=== PATIENT | male | born 1950 | race Caucasian/White ===

== ENCOUNTER 2017-12-08 04:34 | Observation (INO) | payer OTHER ==
--- NOTE | 2017-12-08 04:49 | EDPHY ---
H & P Stated Complaint: swelling to l mouth sweaty nausea Time Seen by Provider: 12/08/17 04:49 HPI/ROS: HPI CHIEF COMPLAINT: Left lower lip swelling. Additionally shortness of breath. HISTORY OF PRESENT ILLNESS: Patient is a 67-year-old male, he has a history of MS, hypertension, hyperlipidemia remote history of PE not on any anticoagulation history of CHF, he presents emergency room with multiple complaints but is main complaint is shortness of breath. He states over the past few days he has had progressively worsening shortness of breath. He states the bilateral lower extremity swelling is normal for him. He states he is unsure of his weight is up. He denies any chest pain. He does report dyspnea on exertion and increasing shortness of breath over the past week. Additionally reports some left lower lip swelling and pain. Past Medical History: MS, CHF, hypertension, hyperlipidemia, remote history of PE, wears 2 L at nasal cannula at night Past Surgical History: No recent surgery Social History: Lives locally, at bedside. Family History: Noncontributory ROS REVIEW OF SYSTEMS: A comprehensive 10 point review of systems is otherwise negative aside from elements mentioned in the history of present illness. Exam Constitutional nontoxic appearing however diaphoretic, mild labored breathing triage nursing summary reviewed, vital signs reviewed, awake/alert. Eyes normal conjunctivae and sclera, EOMI, PERRLA. HENT oropharynx along the left lower gumline towards the front about there is a gumline abscess, moist mucus membranes, no epistaxis, neck supple/ no meningismus, no raccoon eyes. Respiratory mild labored breathing but no wheezing. Cardiovascular rate normal, regular rhythm, no murmur, no edema, distal pulses normal. Gastrointestinal soft, non-tender, no rebound, no guarding, normal bowel sounds, no distension, no pulsatile mass. Genitourinary no CVA tenderness. Musculoskeletal bilateral extremity 3+ pitting edema. Equal. no midline vertebral tenderness, full range of motion, no calf swelling, no tenderness of extremities, no meningismus, good pulses, neurovascularly intact. Skin diaphoretic upon arrival. Neurologic awake, alert and oriented x 3, AAOx3, moves all 4 extremities equally, motor intact, sensory intact, CN II-XII intact, normal cerebellar, normal vision, normal speech. Psychiatric normal mood/affect. Heme/Lymph/Immune no lymphadenopathy. Differential Diagnosis: Includes but is not limited to in a particular order gumline abscess, decompensated heart failure acute CA, PE, pneumonia, volume overload Medical Decision Making: Plan for this patient evaluation for shortness of breath. Will obtain EKG, troponin, BNP, electrolytes, chest x-ray, breathing treatment, additionally will have the I and D his gumline abscess. Re-evaluation: EKG interpretation by me on record in [employer] system. Impression time of EKG 4:56 a.m., this is sinus rhythm rate of [address] elevation. No significant ST depression. Incomplete bundle branch block some motion artifact specially seen in V1 V2 V3. ED x-ray chest one view; poor inspiratory effort. Pulmonary edema present. Cardiomegaly present. PROCEDURE: GUM NIKOLAI ABSCESS I+D. Patient was verbally consented for I and D of the left lower gumline abscess. The patient's oropharynx was evaluate he does have multiple dental caries and somewhat poor dentition. Along the left side he has a gumline abscess and fullness with palpation. There is no evidence of Gold's. Lidocaine with epinephrine was used for local anesthesia 5 cc were used injected directly into the abscess. An 11 blade scalpel was used to make a stab incision approximately 2 cm in length and a good amount of pus was removed approximately 5-7 cc of pus. Patient tolerated this procedure very well. Reviewed milk out significant amount of drainage pus. Patient be placed on Augmentin here in the emergency room. CT angiogram of the chest shows a left upper lobe pulmonary embolism. Additionally elevated right hemidiaphragm with atelectasis. Final diagnosis will be left-sided lower gumline abscess. Additionally patient has a small left upper lobe pulmonary embolism Additionally patient has right lower lobe atelectasis with elevated hemidiaphragm. Recommend patient gets admitted due to his age, morbid obesity, new pulmonary embolism, gumline abscess additionally when the patient got here he was diaphoretic, and had labored breathing. Spoke with the hospitalist service agrees to admit. Dr. French. Source: Patient - Personal History Current Tetanus/Diphtheria Vaccine: Yes Current Tetanus Diphtheria and Acellular Pertussis (TDAP): Yes - Medical/Surgical History Hx Asthma: No Hx Chronic Respiratory Disease: No Hx Diabetes: No Hx Cardiac Disease: No Hx Renal Disease: No Hx Cirrhosis: No Hx Alcoholism: No Hx HIV/AIDS: No Hx Splenectomy or Spleen Trauma: No Other PMH: ms. trigeminal neuralgia - Social History Smoking Status: Never smoked Constitutional: Initial Vital Signs Temperature (C) 36.5 C 12/08/17 04:41 Heart Rate 70 12/08/17 04:41 Respiratory Rate 18 12/08/17 04:41 Blood Pressure 143/96 H 12/08/17 04:41 O2 Sat (%) 91 L 12/08/17 04:41 O2 Delivery Mode Nasal Cannula O2 (L/minute) 2 Allergies/Adverse Reactions: No Known Allergies Allergy (Verified 08/11/12 10:46) Home Medications: Medication Instructions Recorded Acetaminophen [Tylenol 325mg (*)] 325 - 650 mg PO Q6 PRN 12/08/17 Allopurinol [Allopurinol 300 MG 150 mg PO HS 12/08/17 (RX)] Allopurinol [Allopurinol 300 MG 300 mg PO DAILY 12/08/17 (RX)] Aspirin [Aspirin 81mg (*)] 81 mg PO DAILY 12/08/17 Bupropion HCl [Wellbutrin Xl] 300 mg PO DAILY 12/08/17 Fluticasone Nasal [Flonase Nasal 1 sprays NASAL DAILY 12/08/17 [place] (RX)] Ibuprofen [Motrin (*)] 200 - 600 mg PO DAILY PRN 12/08/17 Loratadine [Claritin 10 mg] 10 mg PO DAILY 12/08/17 Propranolol Sr [Inderal LA 80mg 80 mg PO DAILY 12/08/17 (*)] Zolpidem Tartrate [Ambien 5MG (*)] 10 mg PO HS 12/08/17 carBAMazepine ER [Carbatrol (*)] 200 mg PO BID 12/08/17 Medical Decision Making - Data Points Laboratory Results: Laboratory Results 12/08/17 05:15 12/08/17 05:15 Medications Given: Allopurinol (Allopurinol) 150 mg PO HS [facility] Stop: 06/06/18 20:59 Last Admin: 12/09/17 21:24 Dose: 150 mg Allopurinol (Allopurinol) 300 mg PO DAILY [facility] Stop: 06/07/18 08:59 Last Admin: 12/09/17 08:53 Dose: 300 mg Apixaban (Eliquis) 10 mg PO BID [facility] Stop: 06/06/18 20:59 Last Admin: 12/09/17 21:24 Dose: 10 mg Aspirin (Aspirin) 81 mg PO DAILY [facility] Stop: 06/07/18 08:59 Last Admin: 12/09/17 08:54 Dose: 81 mg Bupropion HCl (Wellbutrin Xl) 300 mg PO DAILY [facility] Stop: 06/07/18 08:59 Last Admin: 12/09/17 08:54 Dose: 300 mg Carbamazepine (Carbatrol) 200 mg PO BID [facility] Stop: 06/06/18 20:59 Last Admin: 12/09/17 21:23 Dose: 200 mg Cetirizine HCl (Zyrtec) 10 mg PO DAILY [facility] Stop: 06/07/18 08:59 Last Admin: 12/09/17 08:54 Dose: 10 mg Cefazolin Sodium/Dextrose (Ancef 2 Gm) 100 mls @ 200 mls/hr IV Q8HRS [facility] PRN Reason: Protocol Stop: 01/07/18 21:59 Last Admin: 12/09/17 21:24 Dose: 100 mls Ondansetron HCl (Zofran) 4 mg IVP Q4HRS PRN PRN Reason: Nausea/Vomiting, Can't Take PO Stop: 06/06/18 06:48 Last Admin: 12/09/17 08:52 Dose: 4 mg Propranolol HCl (Inderal La) 80 mg PO DAILY [facility] Stop: 06/07/18 08:59 Last Admin: 12/09/17 08:53 Dose: 80 mg Zolpidem Tartrate (Ambien) 10 mg PO HS [facility] Stop: 06/06/18 20:59 Last Admin: 12/09/17 21:24 Dose: 10 mg Discontinued Medications Amoxicillin/Clavulanate Potassium (Augmentin 875mg) 875 mg PO EDNOW ONE PRN Reason: Protocol Stop: 12/08/17 05:32 Last Admin: 12/08/17 05:36 Dose: 875 mg Enoxaparin Sodium (Lovenox) 130 mg SC EDNOW ONE Stop: 12/08/17 06:41 Last Admin: 12/08/17 06:57 Dose: 130 mg Furosemide (Lasix Injection) 40 mg IVP ONCE ONE Stop: 12/08/17 15:20 Last Admin: 12/08/17 15:46 Dose: 40 mg Point of Care Test Results: Chemistry 12/08/17 05:21 POC Troponin I 0.01 ng/mL ng/mL (0.00-0.08) Departure - Departure Disposition: [facility] Inpatient Acute Clinical Impression: Gum abscess Pulmonary embolism Qualifiers: Pulmonary embolism type: other Chronicity: acute Acute cor pulmonale presence: without acute cor pulmonale Qualified Code(s): I26.99 - Other pulmonary embolism without acute cor pulmonale Dyspnea Qualifiers: Dyspnea type: dyspnea on exertion Qualified Code(s): R06.09 - Other forms of dyspnea Condition: Fair
--- NOTE | 2017-12-08 05:05 | CPEKG ---
Heart Rate: 66 RR Interval: 909 P-R Interval: 185 QRSD Interval: 124 QT Interval: 408 QTC Interval: 428 P Harvey: 56 QRS Harvey: -39 T Wave Harvey: 24 EKG Severity - ABNORMAL ECG - EKG Impression: SINUS RHYTHM EKG Impression: NONSPECIFIC IVCD WITH LAD EKG Impression: PROBABLE INFERIOR INFARCT, OLD Electronically Signed By: Huang Lewis 09-Dec-2017 06:54:02
[2017-12-08 05:24] LABS: PLATELET COUNT 158 10^3/uL (150-400)
[2017-12-08] MEDS ORDERED: AMOXICILLIN/CLAVULANATE POT 875/125 MG TAB PO ONE (05:31)
[2017-12-08 05:33] LABS: INR 1.12 (0.83-1.16); PROTIME(PATIENT) 14.6 SEC (12.0-15.0)
[2017-12-08] MEDS ORDERED: IOPAMIDOL (ISOVUE 370) 100 ML BTL IV ONE (05:48)
[2017-12-08] MEDS ORDERED: ENOXAPARIN 150 MG/ML SYR SC ONE (06:40)
[2017-12-08] MEDS ORDERED: ONDANSETRON DISINTEGRATING 4 MG TAB PO PRN (06:49)
[2017-12-08] MEDS ORDERED: ACETAMINOPHEN 325 MG TAB PO PRN (06:49)
--- NOTE | 2017-12-08 07:12 | PDGENHP ---
History and Physical - Chief Complaint SOB, mouth pain - History of Present Illness 67 yo morbidly obese M w/ MS and HTN presents with SOB, diaphoresis, and mouth pain. Patient began to feel poorly last night when he noted some mouth swelling , which he though might be an allergic reaction. In the ED he was found to have an oral abscess, which was drained. His symptoms improved significantly after this. Due to shortness of breath, a D-dimer was checked, which was elevated. A CTPE was ordered, this showed small GLENNA PE. He has distant hx of DVT/PE but is no longer on AC. He currently denies symptoms and is has O2 sats in the mid 90' s on 2 L O2. History Information - Allergies/Home Medication List Allergies/Adverse Reactions: No Known Allergies Allergy (Verified 08/11/12 10:46) Home Medications: ALLOPURINOL 10/06/09 [Last Taken Unknown] Ambien 10/06/09 [Last Taken Unknown] Aspirin 81mg 10/06/09 [Last Taken Unknown] CLONAZEPAM 10/06/09 [Last Taken Unknown] Claritin 10/06/09 [Last Taken Unknown] Flonase 10/06/09 [Last Taken Unknown] Lisinopril 10/06/09 [Last Taken Unknown] Neurontin 10/06/09 [Last Taken Unknown] PROPRANOLOL HCL 10/06/09 [Last Taken Unknown] Wellbutrin 10/06/09 [Last Taken Unknown] Zocor 10/06/09 [Last Taken Unknown] Zoloft 10/06/09 [Last Taken Unknown] I have personally reviewed and updated: family history, medical history - Past Medical History DVT, hypertension Additional medical history: MS - Surgical History Reports: spinal surgery - Family History Additional family history: ALS, Gonzalez's Palsy. Denies family Hx of MS - Social History Smoking Status: Never smoked Review of Systems Review of Systems: ROS: 10pt was reviewed & negative except for what was stated in HPI & below Physical Exam Physical Exam: Temp Pulse Resp BP Pulse Ox 36.5 C 69 24 H 148/92 H 95 12/08/17 04:41 12/08/17 05:38 12/08/17 05:38 12/08/17 05:38 12/08/17 05:38 Constitutional: no apparent distress, obese Eyes: PERRL, EOMI Ears, Nose, Mouth, Throat: moist mucous membranes, other (L lower drained oral abscess) Cardiovascular: regular rate and rhythym, no murmur, rub, or gallop Respiratory: no respiratory distress, no rales or rhonchi Skin: warm, normal color Musculoskeletal: full muscle strength, no muscle tenderness Neurologic: AAOx3, CN II-XII Intact Psychiatric: interacting appropriately, not anxious Lab Data & Imaging Review 12/08/17 05:15 12/08/17 05:15 WBC 9.71 10^3/uL (3.80-9.50) H 12/08/17 05:15 RBC 5.16 10^6/uL (4.40-6.38) 12/08/17 05:15 Hgb 16.6 g/dL (13.7-17.5) 12/08/17 05:15 Hct 49.2 % (40.0-51.0) 12/08/17 05:15 MCV 95.3 fL (81.5-99.8) 12/08/17 05:15 MCH 32.2 pg (27.9-34.1) 12/08/17 05:15 MCHC 33.7 g/dL (32.4-36.7) 12/08/17 05:15 RDW 12.7 % (11.5-15.2) 12/08/17 05:15 Plt Count 158 10^3/uL (150-400) 12/08/17 05:15 MPV 10.5 fL (8.7-11.7) 12/08/17 05:15 Neut % (Auto) 80.6 % (39.3-74.2) H 12/08/17 05:15 Lymph % (Auto) 8.5 % (15.0-45.0) L 12/08/17 05:15 [place] % (Auto) 7.0 % (4.5-13.0) 12/08/17 05:15 Eos % (Auto) 2.7 % (0.6-7.6) 12/08/17 05:15 Baso % (Auto) 0.8 % (0.3-1.7) 12/08/17 05:15 Nucleat RBC Rel Count 0.0 % (0.0-0.2) 12/08/17 05:15 Absolute Neuts (auto) 7.82 10^3/uL (1.70-6.50) H 12/08/17 05:15 Absolute Lymphs (auto) 0.83 10^3/uL (1.00-3.00) L 12/08/17 05:15 Absolute Monos (auto) 0.68 10^3/uL (0.30-0.80) 12/08/17 05:15 Absolute Eos (auto) 0.26 10^3/uL (0.03-0.40) 12/08/17 05:15 Absolute Basos (auto) 0.08 10^3/uL (0.02-0.10) 12/08/17 05:15 Absolute Nucleated RBC 0.00 10^3/uL (0-0.01) 12/08/17 05:15 Immature Gran % 0.4 % (0.0-1.1) 12/08/17 05:15 Immature Gran # 0.04 10^3/uL (0.00-0.10) 12/08/17 05:15 PT 14.6 SEC (12.0-15.0) 12/08/17 05:15 INR 1.12 (0.83-1.16) 12/08/17 05:15 APTT 27.0 SEC (23.0-38.0) 12/08/17 05:15 D-Dimer 4.61 ug/mLFEU (0.00-0.50) H 12/08/17 05:15 Sodium 140 mEq/L (135-145) 12/08/17 05:15 Potassium 5.6 mEq/L (3.3-5.0) H 12/08/17 05:15 Chloride 99 mEq/L (97-110) 12/08/17 05:15 Carbon Dioxide 28 mEq/l (22-31) 12/08/17 05:15 Anion Gap 13 mEq/L (8-16) 12/08/17 05:15 BUN 17 mg/dL (7-23) 12/08/17 05:15 Creatinine 1.2 mg/dL (0.7-1.3) 12/08/17 05:15 Estimated GFR > 60 12/08/17 05:15 Glucose 174 mg/dL (70-100) H 12/08/17 05:15 Calcium 9.4 mg/dL (8.5-10.4) 12/08/17 05:15 Magnesium 2.0 mg/dL (1.6-2.3) 12/08/17 05:15 Total Bilirubin 1.1 mg/dL (0.1-1.4) 12/08/17 05:15 Conjugated Bilirubin 0.7 mg/dL (0.0-0.5) H 12/08/17 05:15 Unconjugated Bilirubin 0.4 mg/dL (0.0-1.1) 12/08/17 05:15 AST 30 IU/L (17-59) 12/08/17 05:15 ALT 31 IU/L (21-72) 12/08/17 05:15 Alkaline Phosphatase 78 IU/L (38-126) 12/08/17 05:15 POC Troponin I 0.01 ng/mL (0.00-0.08) 12/08/17 05:21 NT-Pro-B Natriuret Pep 330 pg/mL (0-125) H 12/08/17 05:15 Total Protein 6.8 g/dL (6.3-8.2) 12/08/17 05:15 Albumin 4.1 g/dL (3.5-5.0) 12/08/17 05:15 Specimen Hemolysis 133 12/08/17 05:15 Imaging Review: CTpe Prelim: small pe glenna mild cardiomegaly, left pericardial fat pad ? mild prom pulm vessels vs poor inspiration elevation right diap and atx non obst right nephrolith Visualized and Interpreted EKG results: Yes EKG Interpretation: Positive for: normal sinsus rhythm Assessment & Plan Assessment: 67 yo obese M w/ MS p/w oral abscess and small PE. Plan: 1. Pulmonary embolism - Small GLENNA PE found on CTPE after presenting w/ SOB. Unclear how much this was contributing to symptoms as SOB resolved after draining of oral abscess. He has distant hx of prior DVT/PE but is no longer on AC. Troponin negative, BNP 300s, ECG non-ischemic. Currently saturating 95% on baseline 2 L/min O2. - Admit for observation - Monitor on telemetry - Lovenox 1 mg/kg q12h - Discussed case w/ ED physician, reviewed previous records 2. Oral abscess - Drained in ED, will continue Augmentin BID. 3. MS - No e/o acute flare, continue home medications. 4. HTN - Continue home medications Diet - Regular Code - Full Ppx - Therapeutic LMWH Dispo - Admit under observation status
[2017-12-08] MEDS ORDERED: ONDANSETRON 4 MG/2 ML VIAL ONE (08:08)
--- NOTE | 2017-12-08 11:59 | ASMTCMCOM ---
CM Note CM Note Notes: Spoke w/RN, states pt came in for oral abscess. He lives independently with , has MS, and uses O2 at night. RN anticipates that pt will dc home with when medically stable. CM available for any changes. DC Plan: Independent Date Signed: 12/08/2017 11:58 AM Electronically Signed By:Bernie Linda RN
[2017-12-08] MEDS ORDERED: FUROSEMIDE 40 MG/4 ML VIAL IVP ONE (15:19)
--- NOTE | 2017-12-08 18:09 | HOSPPROG ---
Hospitalist Progress Note Assessment/Plan: Patient was seen and examined today. Briefly, patient was admitted with complaints of shortness of breath. He was also found to have an oral abscess which was incised and drained in the emergency room. Patient stated the afternoon he started noticing the fullness of his lower jaw increasing. I evaluated him and was able to express some purulence from the area I did obtain a swab for culture and sensitivities. Considering the increased I did adjust his antibiotics IV antibiotics. I also did give a dose of IV Lasix in light of edema noted on exam this may also help his elevated potassium level also seen this morning. Repeat labs ordered for the morning we also discussion on anticoagulation the patient stated that he would prefer not to go on Coumadin therapy as he was on the past. I adjusted his anticoagulation to Eliquis. I think we can probably get this covered for him for at least 1 month. In any can discuss with pharmacy his primary care provider which anticoagulation would prefer to use ongoing taking cost issues into consideration. Objective: Vital Signs Temp Pulse Resp BP Pulse Ox 36.9 C 68 16 142/76 H 94 12/08/17 15:08 12/08/17 15:08 12/08/17 15:08 12/08/17 15:08 12/08/17 15:08 Microbiology 12/08/17 15:24 Gram Stain - Final Mouth - Eswab PT 14.6 SEC (12.0-15.0) 12/08/17 05:15 INR 1.12 (0.83-1.16) 12/08/17 05:15 ICD10 Worksheet Patient Problems: Problems Problem Status Onset Dyspnea Acute Gum abscess Acute Pulmonary embolism Acute
[2017-12-08] MEDS ORDERED: ENOXAPARIN 150 MG/ML SYR SC SCH (21:00)
[2017-12-08] MEDS: ALLOPURINOL 300 MG TAB PO SCH (21:27)
[2017-12-08] MEDS: APIXABAN 5 MG TAB PO SCH (21:28)
[2017-12-08] MEDS: carBAMazepine ER 200 MG CAP PO SCH (21:28)
[2017-12-08] MEDS: ZOLPIDEM TARTRATE 5 MG TAB PO SCH (21:29)
[2017-12-08] MEDS: ceFAZolin 2 GM/DEXTROSE 100 ML IV SCH (22:25)
[2017-12-08] MEDS: ONDANSETRON 4 MG/2 ML VIAL IVP PRN (23:51)
[2017-12-09] MEDS: ceFAZolin 2 GM/DEXTROSE 100 ML IV SCH ×3 (05:17→21:24)
[2017-12-09 06:03] LABS: PLATELET COUNT 132 10^3/uL (150-400)
[2017-12-09] MEDS: ONDANSETRON 4 MG/2 ML VIAL IVP PRN (08:52)
[2017-12-09] MEDS: PROPRANOLOL SR 80 MG CAP PO SCH (08:53)
[2017-12-09] MEDS: ALLOPURINOL 300 MG TAB PO SCH ×2 (08:53→21:24)
[2017-12-09] MEDS: APIXABAN 5 MG TAB PO SCH ×2 (08:53→21:24)
[2017-12-09] MEDS: buPROPion XL 150 MG TAB PO SCH (08:54)
[2017-12-09] MEDS: ASPIRIN 81 MG CHEWABLE TAB PO SCH (08:54)
[2017-12-09] MEDS: CETIRIZINE 10 MG TAB PO SCH (08:54)
[2017-12-09] MEDS: carBAMazepine ER 200 MG CAP PO SCH ×2 (10:27→21:23)
--- NOTE | 2017-12-09 16:56 | HOSPPROG ---
Hospitalist Progress Note Assessment/Plan: Subjective Follow-up on oral abscess and shortness of breath. No acute events overnight patient states he was able to express some purulence from the oral lesion. I did discuss with his nurse this morning as well. No subjective fevers or chills noted. He notes significant lessening of his edema after receiving Lasix yesterday. His was present at the bedside negative her an update on the current clinical status. We did discuss that his oxygen levels are still dropping below 90% on room air during the daytime. Objective Vital signs as detailed below Physical exam General-patient appears comfortable he is awake alert conversant sitting upright in bed visiting with his Heart-regular rate and rhythm no murmurs appreciated Lungs-normal respiratory effort clear auscultation no crackles at the lung bases Abdomen-soft nontender nondistended -no Randle catheter in place Extremities lessened edema as compared to yesterday's exam Labs as detailed below Assessment and plan Acute hypoxic respiratory failure-this may be chronic at this point time. Will continue to attempt to wean oxygen. We may need to assess him for continuous home oxygen. I am not sure that the small pulmonary is embolism noted on imaging would be significant enough to cause this degree of hypoxia. He was not currently or a smoker in the past. Oral abscess-status post incision and drainage in the emergency room. I encouraged him to continue to express purulence from the lesion if it gets more swollen. Swab was taken yesterday which appears to be streptococcal in origin. Continue with current cefazolin pending final culture results. Likely can transition to oral antibiotics tomorrow. Pulmonary embolism-recurrent. Considering his relative immobility with multiple sclerosis and having recurrent thrombosis I would recommend indefinite anticoagulation for now. We had the discussion today on the benefits and risks of Eliquis. We did discuss that when the benefits would be a lack of blood monitoring needed however it may come metastatic higher cost and there is currently no available reversing agent. With this discussion he and his both seemed agreeable to proceed with Eliquis. Multiple sclerosis can't continue current medical therapy Hypertension-continue antihypertensive therapy DVT prophylaxis-patient is anticoagulated Disposition-will order for PT and OT and see how he does but likely could return home tomorrow. Objective: Vital Signs Temp Pulse Resp BP Pulse Ox 36.8 C 64 20 134/75 H 93 12/09/17 15:54 12/09/17 15:54 12/09/17 15:54 12/09/17 15:54 12/09/17 15:54 Microbiology 12/08/17 15:24 Gram Stain - Final Mouth - Eswab Laboratory Results 12/09/17 05:05 12/09/17 05:05 12/08/17 12/09/17 12/10/17 05:59 05:59 05:59 Intake Total 700 300 Balance 700 300 PT 14.6 SEC (12.0-15.0) 12/08/17 05:15 INR 1.12 (0.83-1.16) 12/08/17 05:15 ICD10 Worksheet Patient Problems: Problems Problem Status Onset Dyspnea Acute Gum abscess Acute Pulmonary embolism Acute
[2017-12-09] MEDS: ZOLPIDEM TARTRATE 5 MG TAB PO SCH (21:24)
[2017-12-10 05:50] LABS: PLATELET COUNT 148 10^3/uL (150-400)
[2017-12-10] MEDS: ceFAZolin 2 GM/DEXTROSE 100 ML IV SCH ×2 (06:15→13:12)
[2017-12-10] MEDS: ASPIRIN 81 MG CHEWABLE TAB PO SCH (09:04)
[2017-12-10] MEDS: APIXABAN 5 MG TAB PO SCH (09:04)
[2017-12-10] MEDS: PROPRANOLOL SR 80 MG CAP PO SCH (09:04)
[2017-12-10] MEDS: buPROPion XL 150 MG TAB PO SCH (09:04)
[2017-12-10] MEDS: CETIRIZINE 10 MG TAB PO SCH (09:04)
[2017-12-10] MEDS: carBAMazepine ER 200 MG CAP PO SCH (09:05)
[2017-12-10] MEDS: ALLOPURINOL 300 MG TAB PO SCH (09:05)
[2017-12-10 11:40] VITALS: BP 125/79
--- NOTE | 2017-12-10 13:47 | ASMTLACE ---
LACE Length of stay for Answers: 2 days current admission Comorbidities - select Answers: Congestive heart failure all that apply Other Notes: Multiple sclerosis; HTN; Hx of PE/DVT # of Emergency department Answers: 1-2 visits in the last 6 months Score: 6 Date Signed: 12/10/2017 01:47 PM Electronically Signed By:Risa Reynoso LCSW
--- NOTE | 2017-12-10 14:06 | PDIAF ---
- Diagnosis Code Status: Full Code - Medication Management Discharge Medications: Medications to Continue on Transfer Acetaminophen [Tylenol 325mg (*)] 325 - 650 mg PO Q6 PRN 12/08/17 [Last Taken Unknown] Allopurinol [Allopurinol 300 MG (RX)] 150 mg PO HS 12/08/17 [Last Taken 12/07/17 ] Allopurinol [Allopurinol 300 MG (RX)] 300 mg PO DAILY 12/08/17 [Last Taken 12/07] Bupropion HCl [Wellbutrin Xl] 300 mg PO DAILY 12/08/17 [Last Taken 12/07/17] Fluticasone Nasal [Flonase Nasal [place]] 1 sprays NASAL DAILY 12/08/17 [Last Taken Unknown] Ibuprofen [Motrin (*)] 200 - 600 mg PO DAILY PRN 12/08/17 [Last Taken Unknown] Loratadine [Claritin 10 mg] 10 mg PO DAILY 12/08/17 [Last Taken Unknown] Propranolol Sr [Inderal LA 80mg (*)] 80 mg PO DAILY 12/08/17 [Last Taken ] Zolpidem Tartrate [Ambien 5MG (*)] 10 mg PO HS 12/08/17 [Last Taken 12/07/17] carBAMazepine ER [Carbatrol (*)] 200 mg PO BID 12/08/17 [Last Taken 12/07/17] Amoxicillin/Clavulanate Pot [Augmentin 875 MG TAB (*)] 875 mg PO BID #14 tab [Last Taken Unknown] Apixaban [Eliquis] 5 mg PO BID #60 tab 12/10/17 [Last Taken Unknown] Discharge Medications: Refer to the Discharge Home Medication list for PRN reason. - Orders Services needed: Home Care, Physical Therapy Home Care Face to Face: I certify that this patient was under my care and that I had the required [id number] encounter meeting the encounter requirements on the discharge day. My findings support the fact that the patient is homebound as defined in Home Care Face to Face Continued: CMS Chapter 7 Medicare Benefits Manual 30.1.1 , The condition of the patient is such that there exists a normal inability to leave home and consequently, leaving home would require a considerable and taxing effort. Diet Recommendation: no restrictions on diet Diet Texture: Regular Texture Diet - Follow Up Care Current Providers and Referrals: Sherlyn Isidro MD [Primary Care Provider] - As per Instructions Kianna Daly PA [Physician Puttier] -
--- NOTE | 2017-12-10 14:23 | ASMTDCNOTE ---
Case Management Discharge Discharge Order Complete? Answers: Yes Patient to Obtain Answers: via Family Medications Transportation Arranged Answers: Family/Friends Transport will Pick (Date 12/10/2017 02:00 PM & Time) Faxed Final Orders Answers: Yes Notes: [facility] Family Notified Answers: Yes Notes: Family to transport froilan e Discharge Comments Notes: Patient has been discharged home. PT recommended PT at home. Asked and patient, they have had [facility] in the past and prefer they assist on discharge. Date Signed: 12/10/2017 02:22 PM Electronically Signed By:Risa Reynoso LCSW
--- NOTE | 2017-12-10 14:36 | ASDISCHSUM ---
Discharge Information Plan Status:Home with Home Health Medically Cleared to Leave:12/10/2017 Discharge Date:12/10/2017 CM D/C Disposition:Home Health Service ADT D/C Disposition:Home, Routine, Self-Care Projected Discharge Date:12/10/2017 02:00 PM Transportation at D/C:Family Discharge Delay Reason: Follow-Up Date:12/10/2017 02:00 PM Discharge Slot: Final Diagnosis:Oral abscess, SOB, Hypoxic resp failure, Pulm Embolism Placement Information Referral Type:*Home Health Care Services Referral ID:[id number] Provider Name:[facility] Care Address 1[address] Address 2: City:[place] Selection Factors: State:[place] Patient Contact Information Contact Name:AMARA Relationship: Address:[address] Work Phone: City:[place] Alternate Phone: State/Zip Code:[place] [address] Email: Financial Information Financial Class:[employer] Primary Plan Desc:[facility] Primary Plan Number:[id number] Secondary Plan Desc:MEDICARE OUTPATIENT Secondary Plan Number:[id number] Assessment Information LACE LACE Length of stay for Answers: 2 days current admission Comorbidities - select Answers: Congestive heart failure all that apply Other Notes: Multiple sclerosis; HTN; Hx of PE/DVT # of Emergency department Answers: 1-2 visits in the last 6 months Score: 6 Date Signed: 12/10/2017 01:47 PM Electronically Signed By:Risa Reynoso LCSW [facility] CM Progress Note CM Note CM Note Notes: Spoke w/RN, states pt came in for oral abscess. He lives independently with , has MS, and uses O2 at night. RN anticipates that pt will dc home with when medically stable. CM available for any changes. DC Plan: Independent Date Signed: 12/08/2017 11:58 AM Electronically Signed By:Bernie Linda RN Case Management Discharge Plan Note Case Management Discharge Discharge Order Complete? Answers: Yes Patient to Obtain Answers: via Family Medications Transportation Arranged Answers: Family/Friends Transport will Pick (Date 12/10/2017 02:00 PM & Time) Faxed Final Orders Answers: Yes Notes: [facility] Family Notified Answers: Yes Notes: Family to transport froilan e Discharge Comments Notes: Patient has been discharged home. PT recommended PT at home. Asked and patient, they have had [facility] in the past and prefer they assist on discharge. Date Signed: 12/10/2017 02:22 PM Electronically Signed By:Risa Reynoso LCSW Intervention Information
--- NOTE | 2017-12-10 14:50 | PDHOMEO2F ---
Home Oxygen Face to Face Home Orders: I certify that a physician or a nurse practitioner or physician's assistant baseball coach has had a [id number] encounter with this patient on the date of this order due to the diagnosis listed, which relates to the primary reason the patient requires home oxygen. Alternative treatments have been tried, or considered, and deemed ineffective. It is anticipated that supplemental oxygen will result in improvement with treatment. Home oxygen qualifying diagnosis: pulmonary embolism SpO2 on room air (%): 88 Frequency of home oxygen needed: continuous Home oxygen liters per minute: 3 Home oxygen delivery device: nasal cannula Concentrator: Yes E-tanks for mobility and back up: Yes If ordering portable O2, is the patient mobile in the home?: Yes I certify that, based on these findings, the home oxygen is medically necessary for this patient for the following length of time. Length of time home oxygen needed: 99 years
--- NOTE | 2017-12-10 15:34 | ECHO ---
[email or web address] [address] [address] Main: [phone] Fax: Transthoracic Echocardiogram Name: FELISHA AKERS MR#: [id number] Study Date: 12/10/2017 Study Time: 12:38 PM Date of : 1950 Age: 67 year(s) Height: 188 cm (74 in.) Weight: 136.08 kg (300 lb.) BSA: 2.58 m2 Gender: Male Examination: Echo Indication: PE/LE edema Image Quality: Contrast: Requested by: Magno Ramon BP: / Heart Rate: Rhythm: Indication: PE/LE edema Procedure Staff Painter Tumbling Barrel: Anahi Cespedes [facility] Reading Physician: Lalito Sena MD Requesting Provider: Conclusions: Mildly dilated left ventricle. No LV hypertrophy. The ejection fraction is estimated to be 60-65 %. Mild mitral valve regurgitation is present. The aortic valve is normal in appearance and function. Mild aortic valve regurgitation is present. The tricuspid valve is normal in appearance and function. Trivial to mild tricuspid valve regurgitation. Trivial pulmonic valve regurgitation. Heart rhythm was noted to be irregular. Tele tracing for the echocardiogram was not of diagnostic quality. Normal RVEF and size were noted. PA pressures were normal. Measurements: Chambers Valvular Assessment AV/MV Valvular Assessment TV/PV Normal Normal Normal Name Value Range Name Value Range Name Value Range EF Range: 60-65 % AV Vmax: 1.67 m/s (1 m/s-1.7 m/s) Continued Measurements: Findings: Left Ventricle: Mildly dilated left ventricle. No LV hypertrophy. Normal global systolic LV function. The ejection fraction is estimated to be 60-65 %. No regional wall motion abnormality. Right Ventricle: Normal size right ventricle. Left Atrium: Patient: FELISHA AKERS Study Date: 12/10/2017 Page 1 of 2 12:38 PM The left atrium is normal in size. Right Atrium: The right atrium is normal in size. Mitral Valve: The mitral valve is normal in appearance and function. Mild mitral valve regurgitation is present. Aortic Valve: The aortic valve is normal in appearance and function. Mild aortic valve regurgitation is present. Tricuspid Valve: The tricuspid valve is normal in appearance and function. Trivial to mild tricuspid valve regurgitation. The pulmonary artery pressure is normal. Pulmonic Valve: Pulmonary valve not well visualized. Trivial pulmonic valve regurgitation. Aorta: The aorta is normal. Pericardium: No pericardial effusion. There is pericardial fat. Exam Comments: TDS - pt BSA 2.58m2. (No Signature Object) Patient: FELISHA AKERS Study Date: 12/10/2017 Page 2 of 2 12:38 PM [id number]
--- NOTE | 2017-12-10 16:06 | GDS ---
[f rep st] DISCHARGE SUMMARY DISCHARGE DIAGNOSIS: 1. Oral abscess. 2. Small pulmonary embolus in left upper lobe and questionable small pulmonary embolism in right upp er lobe. HISTORY OF PRESENT ILLNESS: The patient is a pleasant 67-year-old gentleman with a past medical hist ory of multiple sclerosis and nocturnal hypoxia who presented to the [facility] on 12/08/2017, with the complaints of left lower lip swelling and shortness of breath. The patient was found to have an oral abscess in the left lower gumline, which was incised and drained i n the emergency room. Cultures from this have grown streptococcal bacteria. No staph has been noted . Due to complaints of shortness of breath, D-dimer was obtained and found to be elevated. Patient has had a remote history of a pulmonary embolism in the past. A CT angiography was obtained for furt her evaluation and this revealed the presence of a small pulmonary embolism in the left upper lobe an d a questionable small pulmonary embolism in the right upper lobe. He was started on Lovenox subcuta neously for this issue and was started on IV antibiotics for his oral abscess. HOSPITAL COURSE: 1. Acute hypoxic respiratory failure. Patient was needing continuous oxygen here in the hospital at 3 L as compared to his home being only at nocturnal oxygen. He is being assessed for the need for c ontinuous oxygen by Respiratory therapy. The etiology could be a pulmonary embolism, though they see m rather small. Nonetheless, we will await formal evaluation to make additional recommendations on h ome oxygen on a continuous basis. 2. Oral abscess. The patient was on IV cefazolin during the hospitalization. At the time of discha rge, I think we can transition him to Augmentin to continue for 7 additional days and I have recommen ded a followup visit with his dentist for reassessment. Cultures have grown streptococcal bacteria. 3. Pulmonary embolism. The patient was found to have small pulmonary embolism in the left upper lob e and potentially the right as well. With a remote history of pulmonary embolism, this could be cons idered recurrence, and I have recommended starting anticoagulation. Consideration could be given to using indefinite anticoagulation. The patient is also followed by pulmonary medicine and I think a [facility] consultation with them as well for additional recommendations could be helpful. We had a dis cussion on anticoagulation agents and the patient had been on Coumadin previously, but expressed an i nterest in not going back on Coumadin therapy. We discussed using Eliquis and its benefits and risks , the benefits being a lack of blood monitoring and the risks, including the lack of reversing agent, as well as potential increasing cost. We did also discuss a potential interaction with carbamazepin e, which could potentially lower therapeutic dosing, although it sounds like there may be some talk a bout weaning carbamazepine, which has been used for trigeminal neuralgia. In the end with all of our discussions, we decided to proceed with Eliquis and the patient will continue with 10 mg twice a day for 5 additional days, and then adjust the dose downward to 5 mg twice a day. I have reviewed this with pharmacy today. An ultrasound of lower extremities was obtained and there was no evidence of a deep vein thrombosis. 4. Multiple sclerosis. The patient has ongoing outpatient followup with Dr. Lex Darnell. 5. Hypertension. No changes were made during this hospitalization. 6. Chronic kidney disease. The patient has had normal creatinine values here in the hospital, but h as had a mildly elevated creatinine values ranging between 1.5 and 2 in the outpatient setting. He i s followed by Nephrology. 7. DVT prophylaxis. Patient has been anticoagulated. DISPOSITION: Patient appears stable for discharge home today to resume home physical therapy. PHYSICAL EXAMINATION: VITAL SIGNS: On day of discharge: Temperature 37.2, blood pressure is 125/79 , heart rate 87, respirations 18, saturating 94% 3 L nasal cannula. GENERAL: The patient is sitting in a chair at the bedside visiting with his , in no acute distress. Awake, alert, conversant, s omewhat hard of hearing. HEART: Regular rate and rhythm. No murmurs appreciated. LUNGS: Clear to auscultation with normal respiratory effort. ABDOMEN: Soft, nontender, nondistended. : No Fole y catheter in place. EXTREMITIES: No significant pitting edema. HEENT: Swelling of left lower inn er lip has receded with less erythema as well. No purulence able to be expressed from the lesion as has been able to do the past few days. LABORATORY/IMAGING: Notable studies: White blood cell count 7.1, hemoglobin 15, platelets 148. Sod ium 142, potassium 4.2, chloride 100, bicarb 31, BUN 22, creatinine 1.3, glucose 107. BNP 330. D-di vahid 4.6. CT angiography of the chest: Small pulmonary embolus in the left upper lobe and question a small pul monary embolism in the right upper lobe, mild cardiomegaly, mild pulmonary vascular congestion versus poor respiratory effort. There is atelectasis in the right lung base and right middle lobe with ravi vation of the right hemidiaphragm, renal cortical scarring in both kidneys, nonobstructive nephrolith iasis of the right kidney. Lower extremity venous ultrasound: No deep vein thrombosis in the right and left lower extremity. Echocardiogram: This was completed this afternoon, results of which are currently pending. DISCHARGE MEDICATIONS: 1. Augmentin 875/125 one tablet twice a day for 7 additional days. 2. Eliquis 5 mg twice a day. Patient will take 10 mg twice a day for the next 5 days and then adjus t dose downward. 3. Carbamazepine ER 200 mg twice a day. 4. Bupropion XL 300 mg daily. 5. Propranolol 80 mg daily. 6. Claritin 10 mg daily. 7. Zolpidem 5 mg nightly. 8. Allopurinol 300 mg daily and 150 mg nightly. 9. The patient was instructed to stop aspirin with the addition of Eliquis at the time of discharge. DISCHARGE INSTRUCTIONS: I recommend a followup visit with Dr. Sherlyn Isidro in 1-2 weeks' time. I al so recommend a followup visit with the patient's pulmonary provider, which is Kianna Daly. The [facility] ent has a scheduled followup visit with Dr. Lex Darnell tomorrow as well. 40 minutes time dedicated to discharge efforts. /[id number]/MODL
[2017-12-10] MEDS ORDERED: AMOXICILLIN/CLAVULANATE POT 875/125 MG TAB PO SCH (21:00)
[2017-12-10] MEDS ORDERED: APIXABAN 5 MG TAB PO SCH (21:00)
== END 2017-12-10 16:40 | disposition home or self-care (01) ==
LOC: F3E 08:04
PROVIDERS: ADMIT Student in an Organized Health Care Education/Training Program; ATTEND Internal Medicine
PROC: 0C96XZZ Drainage of Lower Gingiva, External Approach (ICD-10-PCS; principal; 2017-12-08)
DX: K05.219 Aggressive periodontitis, localized, unspecified severity (principal); I26.99 Other pulmonary embolism without acute cor pulmonale; J96.01 Acute respiratory failure with hypoxia; G35 Multiple sclerosis; I10 Essential (primary) hypertension; N18.9 Chronic kidney disease, unspecified; E66.01 Morbid (severe) obesity due to excess calories; Z68.38 Body mass index [BMI] 38.0-38.9, adult
CPT/HCPCS: 41800; 71045; 71275; 93005; 93306; 93970; 97162; G0378; G8978; G8979; 84484-PO; J0690; J1650; J1940; J2405; Q9967

== ENCOUNTER → 2018-06-18 | Outpatient (CLI) | payer OTHER | LOC: FIMAGING 09:43 | PROVIDERS: ATTEND Physician Assistant Medical | DX: R05 Cough (principal); J98.6 Disorders of diaphragm; J98.11 Atelectasis; G35 Multiple sclerosis; Z87.01 Personal history of pneumonia (recurrent) ==

== ENCOUNTER 2018-08-05 14:28 | Inpatient (IN) | payer OTHER, MEDICARE ==
--- NOTE | 2018-08-05 14:28 | EDPHY ---
H & P Time Seen by Provider: 08/05/18 14:31 Constitutional: Initial Vital Signs Temperature (C) 37.7 C 08/05/18 14:36 Heart Rate 77 08/05/18 14:36 Respiratory Rate 22 H 08/05/18 14:36 Blood Pressure 114/74 08/05/18 14:36 O2 Sat (%) 92 08/05/18 14:36 O2 Delivery Mode Nasal Cannula O2 (L/minute) 2 Allergies/Adverse Reactions: No Known Allergies Allergy (Verified 08/05/18 14:38) Home Medications: Medication Instructions Recorded Acetaminophen [Tylenol 325mg (*)] 325 - 650 mg PO Q6 PRN 12/08/17 Allopurinol [Allopurinol 300 MG 150 mg PO HS 12/08/17 (RX)] Allopurinol [Allopurinol 300 MG 300 mg PO DAILY 12/08/17 (RX)] Bupropion HCl [Wellbutrin Xl] 300 mg PO DAILY 12/08/17 Fluticasone Nasal [Flonase Nasal 1 sprays NASAL DAILY 12/08/17 [place]] Ibuprofen [Motrin (*)] 200 - 600 mg PO DAILY PRN 12/08/17 Loratadine [Claritin 10 mg] 10 mg PO DAILY 12/08/17 Propranolol Sr [Inderal LA 80mg 80 mg PO DAILY 12/08/17 (*)] Zolpidem Tartrate [Ambien 5MG (*)] 10 mg PO HS 12/08/17 carBAMazepine ER [Carbatrol (*)] 200 mg PO BID 12/08/17 Amoxicillin/Clavulanate Pot 875 mg PO BID #14 tab 12/10/17 [Augmentin 875 MG TAB (*)] Apixaban [Eliquis] 5 mg PO BID #60 tab 12/10/17 Medical Decision Making - Diagnostics Imaging Results: Imaging Impressions Head CT 08/05/18 14:32 Impression: There is no acute intracranial abnormality identified on this unenhanced CT evaluation. If there is further clinical concern regarding the patient's symptoms, MR imaging is suggested, if not otherwise contraindicated. Findings were discussed with Jean Diaz MD at 15:10, on 08/05/2018. Imaging: Discussed imaging studies w/ hunting sales leader Radiologist, I viewed and interpreted images myself ED Course/Re-evaluation: CHIEF COMPLAINT: Hit head, on blood thinners HISTORY OF PRESENT ILLNESS: The patient is an anticoagulated (Eliquis) 68 y/o male with a history of MS, CHF , and a PE arriving via EMS after he hit his head. The patient has a mild headache at baseline, but over the last several weak the patient's headaches and unsteadiness has increased. Today he fell due to the unsteadiness and hit the back of his head. As the patient is on blood thinners the patient's called EMS to transport the patient to the emergency department. The also reports that the patient has been unable to walk and his MS medications ( steroids) are no longer working. She is concerned that she can no longer care for the patient at home. No fever, chest pain, shortness of breath, abdominal pain, urinary or bowel complaints. REVIEW OF SYSTEMS: A comprehensive 10 system review of systems is otherwise negative aside from elements mentioned in the history of present illness and medical decision making. PHYSICAL EXAM: HR, BP, O2 Sat, RR. Temp noted General Appearance: Alert, well hydrated, appropriate, and non-toxic appearing. Head: Eyes: Pupils equal, round, reactive to light and accommodation, EOMI, no trauma , no injection. Ears: Clear bilaterally, no perforation, normal landmarks Nose: Atraumatic, no rhinorrhea, clear. Throat: There is no erythema or exudates, no lesions, normal tonsils, mucus membranes moist. Neck: Supple, 2+ carotid upstroke, nontender, no lymphadenopathy. Respiratory: No retractions, no distress, no wheezes, and no accessory muscle use. Lungs are clear to auscultation bilaterally. Abdominal breathing which is patient's baseline due to MS. Cardiovascular: Regular rate and rhythm, no murmurs, rubs, or gallops. Bilateral carotid, radial, dorsalis pedis, and posterior tibial pulses intact. Good capillary refill all extremities. Gastrointestinal: Abdomen is soft, nontender, non-distended, no masses, no rebound, no guarding, no peritoneal signs. Musculoskeletal: Normal active ROM of all extremities, atraumatic. Neurological: Alert, appropriate, and interactive. The patient has normal DTRs and non-focal cranial nerves, motor, sensory, and cerebellar exam. Skin: No rashes, good turgor, no nodules on palpation. Past Medical history: MS, CHF, hypertension, hyperlipidemia, remote history of PE, wears 2 L at nasal cannula at night Past Surgical History: No recent surgery Family history: Denies Social history: Lives in [place], at bedside, retired DIAGNOSTICS/PROCEDURES/CRITICAL CARE TIME: Head CT: Negative DIFFERENTIAL DIAGNOSIS: The differential diagnosis for the patient's head injury included but was not limited to concussion, skull fracture, intra-parenchymal contusion, subarachnoid , subdural and epidural hematoma. MEDICAL DECISION MAKING: The patient is an anticoagulated (Eliquis) 68 y/o male with a history of MS, CHF , and a PE arriving via EMS after he hit his head. On exam the patient has a small hematoma to the back of his head. Head CT ordered. 1520: Dr. Diaz spoke with Dr. Zafar, radiologist, who reports there are no acute findings on patient's head CT. This patient is safe to return home. Return precautions provided; patient is comfortable with this plan. 1525: Reassessed patient and discussed imaging findings. Patient will need to be admitted for an MS exacerbation as his can no longer care for him at home. Patient care turned over to Dr. Diaz who will consult with the hospitalist service. Departure - Departure Disposition: [facility] Inpatient Acute Clinical Impression: Hematoma, Exacerbation of multiple sclerosis Head injury Qualifiers: Encounter type: initial encounter Qualified Code(s): S09.90XA - Unspecified injury of head, initial encounter Condition: Fair Instructions: Head Injury (ED), Hematoma (ED) Additional Instructions: Follow-up with your primary doctor within 72 hours. Return to the Emergency Department for severe headache, vomiting, vision changes, confusion, fever or other concerns. Referrals: [facility],. [Clinic] - As per Instructions Sushila Myrick MD [Medical Doctor] - As per Instructions Report Scribed for: Jame Anglin Report Scribed by: Hoa Mcghee Date of Report: 08/05/18 Time of Report: 14:31
[2018-08-05] MEDS ORDERED: LORazepam 0.5 MG TAB PO PRN (16:21)
[2018-08-05] MEDS ORDERED: ACETAMINOPHEN 325 MG TAB PO PRN (16:21)
[2018-08-05] MEDS ORDERED: ONDANSETRON 4 MG/2 ML VIAL IVP PRN (16:21)
[2018-08-05] MEDS ORDERED: HYDROmorphONE/DILAUDID 1 MG/ML INJ IVP PRN (16:21)
[2018-08-05] MEDS ORDERED: LORazepam 2 MG/ML INJ IVP PRN (16:21)
[2018-08-05] MEDS ORDERED: HYDROCODONE/APAP 5/325 TAB PO PRN (16:21)
[2018-08-05] MEDS ORDERED: oxyCODONE IR 5 MG TAB PO PRN (16:21)
[2018-08-05] MEDS ORDERED: PROMETHAZINE HCL 25 MG/ML INJ IVP PRN (16:21)
[2018-08-05] MEDS ORDERED: ONDANSETRON DISINTEGRATING 4 MG TAB PO PRN (16:21)
[2018-08-05] MEDS ORDERED: ALBUTEROL 3 ML DEYVIAL IH PRN (18:31)
[2018-08-05] MEDS ORDERED: methylPREDNISolone SOD SUCC 125 MG/2 ML VIAL IVP ONE (18:32)
[2018-08-05] MEDS ORDERED: ZOLPIDEM TARTRATE 5 MG TAB PO PRN (18:32)
[2018-08-05] MEDS ORDERED: POTASSIUM CL 20 MEQ TAB PO ONE (18:45)
[2018-08-05] MEDS ORDERED: POTASSIUM Cl (KCl) 100 ML IV ONE (18:45)
[2018-08-05 19:00] LABS: PLATELET COUNT 75 10^3/uL (150-400)
[2018-08-05] MEDS ORDERED: POTASSIUM Cl (KCl) 100 ML IV SCH (19:00)
--- NOTE | 2018-08-05 20:54 | PDGENHP ---
History and Physical - Chief Complaint weakness/sob - History of Present Illness 68 yo M with PMH of MS presenting with significantly worsening weakness along with shortness of breath and wheezing. Patient notes that since Monday he has been having issues with cough and shortness of breath. He had some diarrhea and vomiting as well yesterday. Today he continued to have sob and began to have audible wheezing which is unusual for him. He notes he has had cough which was productive of white sputum. He was so weak today that he was not able to walk, and he normally is able to ambulate well with a walker. Patient had a fall at home and hit his head, he is on chronic AC for hx of PE. He was evaluated in the ER for his weakness and admitted for presumed MS flare. When patient arrived to the floor, he was noted to have significantly increased work of breathing and wheezing, and shortly after that developed fever and tachycardia as well. History Information - Allergies/Home Medication List Allergies/Adverse Reactions: No Known Allergies Allergy (Verified 08/05/18 14:38) Home Medications: Allopurinol [Allopurinol 300 MG (RX)] 150 mg PO HS 12/08/17 [Last Taken 20:00] Allopurinol [Allopurinol 300 MG (RX)] 300 mg PO DAILY 12/08/17 [Last Taken 08/05 09:00] Bupropion HCl [Wellbutrin Xl] 300 mg PO DAILY 12/08/17 [Last Taken 08/05/18 09: 00] Propranolol Sr [Inderal LA 80mg (*)] 80 mg PO DAILY 12/08/17 [Last Taken 09:00] Atorvastatin Calcium [Lipitor 10 mg (*)] 10 mg PO DAILY 08/05/18 [Last Taken 08:00] Cholecalciferol Vit D3 [Vitamin D3 (*)] 1,000 units PO DAILY 08/05/18 [Last Taken 08/05/18 08:00] Clonazepam 2 mg PO BID 08/05/18 [Last Taken 08/05/18 08:00] DULoxetine [Cymbalta 60 MG (*)] 60 mg PO DAILY 08/05/18 [Last Taken 08/05/18 08: 00] Lisinopril [Zestril 10 mg (*)] 10 mg PO DAILY 08/05/18 [Last Taken 08/05/18 09: 00] [place]-3 Fatty Acids [Fish Oil 1000 mg (*)] 1,000 mg PO DAILY 08/05/18 [Last Taken 08/05/18 08:00] Triamterene/Hctz 37.5/25 [Dyazide 37.5/25 (*)] 1 cap PO DAILY 08/05/18 [Last Taken 08/05/18 08:00] Zolpidem Tartrate 10 mg PO HS PRN 08/05/18 [Last Taken 08/04/18 20:00] I have personally reviewed and updated: family history, medical history, social history, surgical history - Past Medical History DVT, hypertension, hyperlipidemia Additional medical history: MS. gout. peripheral neuropathy - Surgical History Reports: spinal surgery - Family History Additional family history: ALS, Gonzalez's Palsy. Denies family Hx of MS - Social History Smoking Status: Never smoked Alcohol Use: Occasionally Drug Use: None Additional social history: lives independenly with his , uses a walker at baseline Review of Systems Review of Systems: ROS: 10pt was reviewed & negative except for what was stated in HPI & below Physical Exam Physical Exam: Temp Pulse Resp BP Pulse Ox 39.0 C H 73 19 106/58 L 92 08/05/18 19:58 08/05/18 19:32 08/05/18 19:58 08/05/18 19:32 08/05/18 19:58 O2 (L/minute) 2 Constitutional: chronically ill appearing, obese, uncomfortable Eyes: PERRL, anicteric sclera Ears, Nose, Mouth, Throat: moist mucous membranes, hearing normal, poor dentition Cardiovascular: regular rate and rhythym, no murmur, rub, or gallop, No edema Respiratory: reduced air movement, expiratory wheeze, respiratory distress Gastrointestinal: normoactive bowel sounds, soft, non-tender abdomen, no palpable masses Genitourinary: no bladder tenderness Skin: warm, normal color Musculoskeletal: generalized weakness Neurologic: AAOx3 Psychiatric: interacting appropriately, not anxious, not encephalopathic Lab Data & Imaging Review 08/05/18 18:12 08/05/18 18:12 WBC 13.93 10^3/uL (3.80-9.50) H 08/05/18 18:12 RBC 3.87 10^6/uL (4.40-6.38) L 08/05/18 18:12 Hgb 12.7 g/dL (13.7-17.5) L 08/05/18 18:12 Hct 38.0 % (40.0-51.0) L 08/05/18 18:12 MCV 98.2 fL (81.5-99.8) 08/05/18 18:12 MCH 32.8 pg (27.9-34.1) 08/05/18 18:12 MCHC 33.4 g/dL (32.4-36.7) 08/05/18 18:12 RDW 13.7 % (11.5-15.2) 08/05/18 18:12 Plt Count 75 10^3/uL (150-400) L 08/05/18 18:12 MPV 10.5 fL (8.7-11.7) 08/05/18 18:12 Neut % (Auto) 90.1 % (39.3-74.2) H 08/05/18 18:12 Lymph % (Auto) 2.0 % (15.0-45.0) L 08/05/18 18:12 [place] % (Auto) 7.3 % (4.5-13.0) 08/05/18 18:12 Eos % (Auto) 0.0 % (0.6-7.6) L 08/05/18 18:12 Baso % (Auto) 0.1 % (0.3-1.7) L 08/05/18 18:12 Nucleat RBC Rel Count 0.0 % (0.0-0.2) 08/05/18 18:12 Absolute Neuts (auto) 12.55 10^3/uL (1.70-6.50) H 08/05/18 18:12 Absolute Lymphs (auto) 0.28 10^3/uL (1.00-3.00) L 08/05/18 18:12 Absolute Monos (auto) 1.02 10^3/uL (0.30-0.80) H 08/05/18 18:12 Absolute Eos (auto) 0.00 10^3/uL (0.03-0.40) L 08/05/18 18:12 Absolute Basos (auto) 0.01 10^3/uL (0.02-0.10) L 08/05/18 18:12 Absolute Nucleated RBC 0.00 10^3/uL (0-0.01) 08/05/18 18:12 Immature Gran % 0.5 % (0.0-1.1) 08/05/18 18:12 Immature Gran # 0.07 10^3/uL (0.00-0.10) 08/05/18 18:12 RBC/WBC/PLT Morphology TNP 08/05/18 18:12 Platelet Estimate TNP 08/05/18 18:12 VBG Lactic Acid 2.4 mmol/L (0.7-2.1) H 08/05/18 20:30 Sodium 136 mEq/L (135-145) 08/05/18 18:12 Potassium 3.5 mEq/L (3.5-5.2) 08/05/18 18:12 Chloride 110 mEq/L (97-110) 08/05/18 18:12 Carbon Dioxide 20 mEq/l (22-31) L 08/05/18 18:12 Anion Gap 6 mEq/L (6-14) 08/05/18 18:12 BUN 32 mg/dL (7-23) H 08/05/18 18:12 Creatinine 1.5 mg/dL (0.7-1.3) H 08/05/18 18:12 Estimated GFR 47 08/05/18 18:12 Glucose 130 mg/dL (70-100) H 08/05/18 18:12 Calcium 6.7 mg/dL (8.5-10.4) L 08/05/18 18:12 Total Bilirubin 0.7 mg/dL (0.1-1.4) 08/05/18 18:12 AST 42 IU/L (17-59) 08/05/18 18:12 ALT 82 IU/L (21-72) H 08/05/18 18:12 Alkaline Phosphatase 57 IU/L (38-126) 08/05/18 18:12 Total Protein 4.2 g/dL (6.3-8.2) L 08/05/18 18:12 Albumin 2.3 g/dL (3.5-5.0) L 08/05/18 18:12 Urine Color YELLOW 08/05/18 18:05 Urine Appearance HAZY 08/05/18 18:05 Urine pH 5.0 (5.0-7.5) 08/05/18 18:05 Ur Specific [place] 1.017 (1.002-1.030) 08/05/18 18:05 Urine Protein 1+ (NEGATIVE) H 08/05/18 18:05 Urine Ketones NEGATIVE (NEGATIVE) 08/05/18 18:05 Urine Blood 3+ (NEGATIVE) H 08/05/18 18:05 Urine Nitrate NEGATIVE (NEGATIVE) 08/05/18 18:05 Urine Bilirubin NEGATIVE (NEGATIVE) 08/05/18 18:05 Urine Urobilinogen NEGATIVE EU (0.2-1.0) 08/05/18 18:05 Ur Leukocyte Esterase TRACE (NEGATIVE) H 08/05/18 18:05 Urine RBC 25-50 /hpf (0-3) H 08/05/18 18:05 Urine WBC 10-15 /hpf (0-3) H 08/05/18 18:05 Ur Epithelial Cells TRACE /lpf (NONE-1+) 08/05/18 18:05 Hyaline Casts 1-5 /lpf (0-1) 08/05/18 18:05 Granular Casts 5-15 /lpf (0-1) 08/05/18 18:05 Urine Mucus TRACE /lpf (NONE-1+) 08/05/18 18:05 Ur Culture Indicated? INDICATED (NI) H 08/05/18 18:05 Urine Glucose NEGATIVE (NEGATIVE) 08/05/18 18:05 Visualized and Interpreted Chest x-ray results: Yes Chest X-Ray results: no infiltrate Visualized and Interpreted imaging results: Yes Interpretation: head CT: negative Assessment & Plan Assessment: Head injury (Acute) Hematoma (Acute) Exacerbation of multiple sclerosis (Acute) 68 yo M with hx of MS as well as DVT/PE currently on AC presenting with significantly increased weakness as well as acute hypoxic respiratory failure and sepsis # sepsis: patient with fever, tachycardia, elevated wbc and presumably respiratory source of infection as next. Blood cultures, urine cultures pending. Stated on ctx/azithro for coverage of urine/respiratory infection. HD stable currently, no e/o end organ dysfunction # acute hypoxic respiratory failure: patient noted to be in significant respiratory distress on arrival to [facility], diffuse wheezing and increased wob. Portable cxr without clear e/o pna, no hx of RAD/COPD per his report. Started duonebs/albuterol nebs and IV steroids. Abx as above for concern for pna, resp panel pcr pending. # pyuria: without urinary complaints but with hx of MS and neuropathy related to that may be difficult to asses, urine cultures pending, ctx for coverage of possible urinary source of infection pending cultures # MS with acute flare: suspect flare due to infectious process, at baseline patient is relatively mobile and independent, started steroids for diffuse wheezing and requested neurology to consult. Did not start MS exacerbation dosing of methylprednisolone at this time and will defer that to neurology. # DVT/PE: continue AC # IP status Patient new to my care. Old records reviewed summarized as above. Care plan reviewed with ER doctor including plans for pt/ot. Further hx obtained from patients present at bedside.
[2018-08-05] MEDS ORDERED: ALLOPURINOL 300 MG TAB PO SCH (21:00)
[2018-08-05] MEDS: clonazePAM 1 MG TAB PO SCH (22:01)
[2018-08-05] MEDS: AZITHROMYCIN IV 500 MG in NS 250 ML IV SCH (22:01)
[2018-08-05] MEDS: APIXABAN 5 MG TAB PO SCH (22:02)
[2018-08-06] MEDS: methylPREDNISolone SOD SUCC 125 MG/2 ML VIAL IVP SCH ×4 (00:05→18:49)
[2018-08-06 04:49] LABS: PLATELET COUNT 95 10^3/uL (150-400)
[2018-08-06] MEDS: AZITHROMYCIN IV 500 MG in NS 250 ML IV SCH (07:49)
[2018-08-06] MEDS ORDERED: ALLOPURINOL 300 MG TAB PO SCH (09:00)
[2018-08-06] MEDS: APIXABAN 5 MG TAB PO SCH ×2 (09:16→22:11)
[2018-08-06] MEDS: buPROPion XL 150 MG TAB PO SCH (09:16)
[2018-08-06] MEDS: ATORVASTATIN CALCIUM 10 MG TAB PO SCH (09:17)
[2018-08-06] MEDS: CHOLECALCIFEROL VIT D3 1,000 UNITS TAB PO SCH (09:17)
[2018-08-06] MEDS: clonazePAM 1 MG TAB PO SCH ×2 (09:17→22:11)
[2018-08-06] MEDS: OMEGA-3 FATTY ACIDS 1,000 MG CAP PO SCH (09:20)
[2018-08-06] MEDS: DULoxetine 60 MG CAP PO SCH (09:21)
--- NOTE | 2018-08-06 10:00 | ASMTCMCOM ---
CM Note CM Note Notes: CM spoke to Tri Tillman NP regarding this case. Pt is a 68 y/o man admitted for MS and FTT. Therapies have been ordered and awaiting recommendations. Neurology has been consulted. Needs are TBD at this time. Pt living w/ his independent prior to coming to the hospital and uses a walker to ambulate. CM to follow. Plan: TBD Date Signed: 08/06/2018 10:00 AM Electronically Signed By:GERMANIA Valerio
--- NOTE | 2018-08-06 10:12 | PDMN ---
Medical Necessity Medical necessity: [facility] [place] Sepsis A-3 days: 68 yo w/ weakness, SOB, wheezing in setting of MS exacerbation. Upon admit pt developed fever and tachycardia. Lactic acid elevated 2.4 Pt septic w/ acute hypoxic resp fx presumed resp source of infection. BC, UC pending. IV antibx started, pt on nebs and IV steroids. Placed on O2. During course of hospitalization pt becoming hypotensive and creat increased from 1.5 to 2. Meets IP med nec for sepsis w/ hemodynamic instability, hypoxemia, rising creatinine. Hx MS, PE on AC.
[2018-08-06] MEDS: PROPRANOLOL SR 80 MG CAP PO SCH (11:35)
[2018-08-06] MEDS: NS 1,000 ML IV SCH (11:53)
--- NOTE | 2018-08-06 11:55 | GCON ---
[f rep st] CONSULTATION NEUROLOGY CONSULT DATE OF CONSULTATION: 08/06/2018 REFERRING PHYSICIAN: Chely Ayon MD CHIEF COMPLAINT: Generalized weakness. HISTORY OF PRESENT ILLNESS: The patient is a very pleasant 68-year-old gentleman followed by Dr. Darnell as an outpatient for multiple sclerosis, on Ocrevus currently. He has had several days of slow decline in constitutional symptoms that led to him feeling unsteady, falling and hitting his head. Because he is on oral anticoagulation for venous thrombosis, his brought him in to rule out intracranial hemorrhage and because she was having trouble taking care of him at home. Head CT showed no intracranial hemorrhage. Indeed, he was found to have infection and started on antibiotics and is feeling better now. He did not have any new focal deficits as he has previously had with MS. For past medical history, family history, social history, home medications, and allergies, see Dr. Ayon's H and P. PHYSICAL EXAM: VITAL SIGNS: 106/58, temperature 39 Celsius, respiratory rate 16. NEUROLOGIC: Generally, he is hard of hearing, but awake, alert, very pleasant. Higher mental function: He is conversant and has no obvious aphasia. On motor exam, he has no focal weakness in any of the extremities. He does have diffuse tremor which is chronic. Extraocular movements are full. No NESTOR. IMPRESSION AND PLAN: 1. Multiple sclerosis, on Ocrevus therapy. 2. Infection. Overall, his presentation is suggestive of an infection causing decompensation with his multiple sclerosis. He has no new focal symptoms. We discussed further testing and evaluation. We will add a [place] virus titer per Dr. Darnell' recommendation. We will hold off on MRI brain as this is not a new focal symptom as he has experienced previously. He is feeling better with antibiotics and fluids. We will continue treatment of probable underlying infection, UA was abnormal. He will need physical therapy, OT to help with disposition as he may not be able to return home. We will defer to therapies and Case Management. We will continue to follow the patient as needed. Please do not hesitate to call if there are any questions or changes in neurologic status. Seventy total minutes floor time over 50% in direct counseling and coordination of care. /[id number]/MODL MTDD
--- NOTE | 2018-08-06 13:04 | NEUROPROG ---
Assessment: Addendum to consultation: In reviewing history and EHR again, we will proceed with MRI brain with / without contrast compared to his last study in 2015 for question progression of disease or PML Objective: Vital Signs Temp Pulse Resp BP Pulse Ox 36.3 C 80 20 108/68 96 08/06/18 12:02 08/06/18 12:02 08/06/18 12:02 08/06/18 12:02 08/06/18 12:02 Microbiology 08/05/18 23:30 Respiratory Panel (PCR) - Final Nasal, Sinus - Swab No Organism Detected By Pcr Laboratory Results 08/06/18 04:24 08/06/18 04:24 08/05/18 08/06/18 08/07/18 05:59 05:59 05:59 Intake Total 605 Output Total 150 200 Balance 455 -200 Allergies/Adverse Reactions: No Known Allergies Allergy (Verified 08/05/18 14:38)
--- NOTE | 2018-08-06 13:22 | HOSPPROG ---
Hospitalist Progress Note Assessment/Plan: 68 yo M with hx of MS as well as DVT/PE currently on AC presenting with significantly increased weakness as well as acute hypoxic respiratory failure and sepsis. First encounter, chart reviewed. # sepsis: patient with fever, tachycardia, elevated wbc -unclear of source, possibly respiratory source - Blood cultures, urine cultures pending -Ceftriaxone and Azithromycin (08/05) # acute hypoxic respiratory failure: -still appears to be in some distress, uses accessory muscles at hyacinth -duonebs, albuterol, iv steroids -respiratory panel PCR is negative #renal insufficiency -baseline creat is 1-1.6, creat today is 2 -hold nephrotoxic agents, will gently hydrate # pyuria: without urinary complaints but with hx of MS and neuropathy related to that may be difficult to asses, urine cultures pending, ctx for coverage of possible urinary source of infection pending cultures # MS with acute flare -on Ocrevus therapy -to get an MRI with and without contrast today -CT of head showed nothing acute suspect flare due to infectious process # DVT/PE: continue AC #Plan: MRI today, repeat labs in the morning, holding nephrotoxic medications Subjective: Hilario is feeling a bit better today since being admitted. Objective: Vital Signs Temp Pulse Resp BP Pulse Ox 36.3 C 80 20 108/68 96 08/06/18 12:02 08/06/18 12:02 08/06/18 12:02 08/06/18 12:02 08/06/18 12:02 Microbiology 08/05/18 23:30 Respiratory Panel (PCR) - Final Nasal, Sinus - Swab No Organism Detected By Pcr Laboratory Results 08/06/18 04:24 08/06/18 04:24 08/05/18 08/06/18 08/07/18 05:59 05:59 05:59 Intake Total 605 Output Total 150 200 Balance 455 -200 - Physical Exam Constitutional: appears nourished, not in pain, obese, uncomfortable Ears, Nose, Mouth, Throat: hearing normal Cardiovascular: regular rate and rhythym Respiratory: reduced air movement, other (increase use of accessory muscles at times, use of belly when he breathes) Gastrointestinal: normoactive bowel sounds, soft, non-tender abdomen Skin: warm Musculoskeletal: generalized weakness Neurologic: AAOx3 Psychiatric: interacting appropriately ICD10 Worksheet Patient Problems: Problems Problem Status Onset Exacerbation of multiple sclerosis Acute Head injury Acute Hematoma Acute Dyspnea Acute Gum abscess Acute Pulmonary embolism Acute
[2018-08-06] MEDS ORDERED: GADOBUTROL 10 ML VIAL IVP ONE (16:59)
[2018-08-06] MEDS: IPRATROPIUM/ALBUTEROL 3 ML DEYVIAL IH SCH ×2 (17:03→23:38)
[2018-08-07] MEDS: methylPREDNISolone SOD SUCC 125 MG/2 ML VIAL IVP SCH ×2 (01:22→06:55)
[2018-08-07] MEDS: NS 1,000 ML IV SCH (01:22)
[2018-08-07 05:15] LABS: PLATELET COUNT 115 10^3/uL (150-400)
[2018-08-07] MEDS: IPRATROPIUM/ALBUTEROL 3 ML DEYVIAL IH SCH ×3 (05:20→16:41)
[2018-08-07] MEDS: AZITHROMYCIN IV 500 MG in NS 250 ML IV SCH (07:32)
--- NOTE | 2018-08-07 08:51 | HOSPPROG ---
Hospitalist Progress Note Assessment/Plan: 68 yo M with hx of MS as well as DVT/PE currently on AC presenting with significantly increased weakness as well as acute hypoxic respiratory failure and sepsis. # sepsis: patient with fever, tachycardia, elevated wbc - unclear of source, possibly respiratory source - Blood cultures show no growth, urine cultures show normal skin ricco - Ceftriaxone and Azithromycin (08/05) - patient told me approximately a week ago he had a viral syndrome w diarrhea and wasn't taking much in # acute hypoxic respiratory failure: -resolved -duonebs, albuterol, iv steroids (dc steroids today) -respiratory panel PCR is negative -procalcitonin level is elevated #renal insufficiency -baseline creat is 1-1.6, creat today is 1.8 -improve w hydration -hold nephrotoxic agents #hyperglycemia -checking a hgb A1c -likely all be steroid induced # pyuria -no growth from cx # MS with acute flare -r/t recent diarrhea and poor intake -on Ocrevus therapy -MRI show mild increase in periventricular matter w no PML -CT of head showed nothing acute suspect flare due to infectious process # DVT/PE: continue AC #Plan: with significant improvement of strength and no clear cut infectious etiology, will cont iv abx for one more day since this made him feel much better and closer to his baseline w activity. DC steroids. I suspect his MS w acute flare was all due to dehydration. Reviewed his care w Dr Arcos. Will need another night to see if he can return home or SNF. Subjective: Hilario is feeling much better today. Objective: Vital Signs Temp Pulse Resp BP Pulse Ox 36.7 C 78 18 115/74 90 L 08/07/18 07:52 08/07/18 07:52 08/07/18 07:52 08/07/18 07:52 08/07/18 07:52 Microbiology 08/05/18 23:30 Respiratory Panel (PCR) - Final Nasal, Sinus - Swab No Organism Detected By Pcr Laboratory Results 08/07/18 04:47 08/07/18 04:47 08/06/18 08/07/18 08/08/18 05:59 05:59 05:59 Intake Total 605 1249 548 Output Total 150 1400 Balance 455 -151 548 - Physical Exam Constitutional: no apparent distress, not in pain, obese Eyes: PERRL Ears, Nose, Mouth, Throat: hearing normal Cardiovascular: regular rate and rhythym Respiratory: no respiratory distress Gastrointestinal: normoactive bowel sounds Skin: warm Musculoskeletal: generalized weakness Neurologic: AAOx3, other (answers appropriately but takes a period of time to answer due to his MS) Psychiatric: interacting appropriately ICD10 Worksheet Patient Problems: Problems Problem Status Onset Exacerbation of multiple sclerosis Acute Head injury Acute Hematoma Acute Dyspnea Acute Gum abscess Acute Pulmonary embolism Acute
--- NOTE | 2018-08-07 09:30 | NEUROPROG ---
Assessment: 1. Multiple sclerosis 2. Infection Repeat brain MRI shows some very mild increase in white matter changes. There is no enhancing lesions. There was no definitive imaging suggestion of PML. This is likely decompensation for infection. He will continue antibiotics and fluids. We will hold off on IV steroids based on the above and being on a Ocrevus therapy. No further recommendations now. We will continue to follow up p.r.n. Please do not hesitate to call for any questions or changes in neurologic status. He should follow up with Dr. Darnell as an outpatient. Subjective: No new symptoms Objective: Vital Signs Temp Pulse Resp BP Pulse Ox 36.7 C 78 18 115/74 90 L 08/07/18 07:52 08/07/18 07:52 08/07/18 07:52 08/07/18 07:52 08/07/18 07:52 Microbiology 08/05/18 23:30 Respiratory Panel (PCR) - Final Nasal, Sinus - Swab No Organism Detected By Pcr Laboratory Results 08/07/18 04:47 08/07/18 04:47 08/06/18 08/07/18 08/08/18 05:59 05:59 05:59 Intake Total 605 1249 898 Output Total 150 1400 Balance 455 -151 898 He is awake and alert Some psychomotor slowing Diffuse tremor No focal weakness 35 total minutes floor time; over 50% counseling and coordination of care. Allergies/Adverse Reactions: No Known Allergies Allergy (Verified 08/05/18 14:38)
[2018-08-07] MEDS: CHOLECALCIFEROL VIT D3 1,000 UNITS TAB PO SCH (10:27)
[2018-08-07] MEDS: buPROPion XL 150 MG TAB PO SCH (10:27)
[2018-08-07] MEDS: ATORVASTATIN CALCIUM 10 MG TAB PO SCH (10:27)
[2018-08-07] MEDS: DULoxetine 60 MG CAP PO SCH (10:27)
[2018-08-07] MEDS: clonazePAM 1 MG TAB PO SCH ×2 (10:28→21:12)
[2018-08-07] MEDS: PROPRANOLOL SR 80 MG CAP PO SCH (10:28)
[2018-08-07] MEDS: OMEGA-3 FATTY ACIDS 1,000 MG CAP PO SCH (10:28)
[2018-08-07] MEDS: APIXABAN 5 MG TAB PO SCH ×2 (10:28→21:12)
[2018-08-07] MEDS ORDERED: IPRATROPIUM/ALBUTEROL 3 ML DEYVIAL IH PRN (16:42)
[2018-08-08 08:27] VITALS: BP 121/72
[2018-08-08] MEDS: ATORVASTATIN CALCIUM 10 MG TAB PO SCH (08:52)
[2018-08-08] MEDS: OMEGA-3 FATTY ACIDS 1,000 MG CAP PO SCH (08:52)
[2018-08-08] MEDS: DULoxetine 60 MG CAP PO SCH (08:52)
[2018-08-08] MEDS: clonazePAM 1 MG TAB PO SCH (08:53)
[2018-08-08] MEDS: CHOLECALCIFEROL VIT D3 1,000 UNITS TAB PO SCH (08:53)
[2018-08-08] MEDS: APIXABAN 5 MG TAB PO SCH (08:53)
[2018-08-08] MEDS: PROPRANOLOL SR 80 MG CAP PO SCH (08:53)
[2018-08-08] MEDS: buPROPion XL 150 MG TAB PO SCH (08:53)
[2018-08-08] MEDS: AZITHROMYCIN IV 500 MG in NS 250 ML IV SCH (09:36)
--- NOTE | 2018-08-08 10:07 | PDIAF ---
- Diagnosis Diagnosis: Dehydration Code Status: Full Code - Medication Management Discharge Medications: electronically signed and located in the Home Medication List. PICC Care - Routine: N/A - Orders Services needed: Home Care, Physical Therapy, Occupational Therapy Home Care Face to Face: I certify that this patient was under my care and that I had the required [id number] encounter meeting the encounter requirements on the discharge day. My findings support the fact that the patient is homebound as defined in Home Care Face to Face Continued: CMS Chapter 7 Medicare Benefits Manual 30.1.1 , The condition of the patient is such that there exists a normal inability to leave home and consequently, leaving home would require a considerable and taxing effort. Isolation Type: None Diet Recommendation: no restrictions on diet Additional Instructions: Follow-up with your primary doctor within 72 hours. Return to the Emergency Department for severe headache, vomiting, vision changes, confusion, fever or other concerns. - Follow Up Care Current Providers and Referrals: Sushila Myrick MD [Medical Doctor] - As per Instructions [facility],. [Clinic] - As per Instructions Lex Darnell MD [Medical Doctor] -
--- NOTE | 2018-08-08 11:46 | PDIAF ---
- Diagnosis Diagnosis: Dehydration Code Status: Full Code - Medication Management Discharge Medications: electronically signed and located in the Home Medication List. PICC Care - Routine: N/A - Orders Services needed: Home Care, Registered Nurse, Physical Therapy, Occupational Therapy Home Care Face to Face: I certify that this patient was under my care and that I had the required [id number] encounter meeting the encounter requirements on the discharge day. My findings support the fact that the patient is homebound as defined in Home Care Face to Face Continued: CMS Chapter 7 Medicare Benefits Manual 30.1.1 , The condition of the patient is such that there exists a normal inability to leave home and consequently, leaving home would require a considerable and taxing effort. Isolation Type: None Diet Recommendation: no restrictions on diet Additional Instructions: Follow-up with your primary doctor within 72 hours. Return to the Emergency Department for severe headache, vomiting, vision changes, confusion, fever or other concerns. - Follow Up Care Current Providers and Referrals: Sushila Myrick MD [Medical Doctor] - As per Instructions [facility],. [Clinic] - As per Instructions Lex Darnell MD [Medical Doctor] -
--- NOTE | 2018-08-08 11:52 | ASMTDCNOTE ---
Case Management Discharge Discharge Order Complete? Answers: Yes Patient to Obtain Answers: Independently Medications Transportation Arranged Answers: Family/Friends Faxed Final Orders Answers: Yes Agency/Facility Transfer Answers: Yes Report Printed & Faxed to Receiving Agency Family Notified Answers: Yes Discharge Comments Notes: D/w [employer], final orders faxed. Carolina at [facility] notified for (RN/PT/OT). Met with pt and to confirm plan. Date Signed: 08/08/2018 11:51 AM Electronically Signed By:Bernie Linda RN
--- NOTE | 2018-08-08 11:54 | ASMTLACE ---
LACE Length of stay for Answers: 2 days current admission Acuity / Level of Answers: Yes Care: Did the patient have an inpatient admission? Comorbidities - select Answers: Congestive heart failure all that apply Opioid dependence / Chronic pain Other Notes: MS; Hx of PE; HTN # of Emergency department Answers: 1-2 visits in the last 6 months Score: 13 Date Signed: 08/08/2018 11:53 AM Electronically Signed By:Bernie Linda RN
--- NOTE | 2018-08-08 12:32 | PDIAF ---
- Diagnosis Diagnosis: Dehydration Code Status: Full Code - Medication Management Discharge Medications: electronically signed and located in the Home Medication List. PICC Care - Routine: N/A - Orders Services needed: Home Care, Registered Nurse, Physical Therapy, Occupational Therapy Home Care Face to Face: I certify that this patient was under my care and that I had the required [id number] encounter meeting the encounter requirements on the discharge day. My findings support the fact that the patient is homebound as defined in Home Care Face to Face Continued: CMS Chapter 7 Medicare Benefits Manual 30.1.1 , The condition of the patient is such that there exists a normal inability to leave home and consequently, leaving home would require a considerable and taxing effort. Isolation Type: None Diet Recommendation: no restrictions on diet Additional Instructions: Follow-up with your primary doctor within 72 hours. Return to the Emergency Department for severe headache, vomiting, vision changes, confusion, fever or other concerns. - Labs/Radiology BMP Date: 08/10/18 - Follow Up Care Current Providers and Referrals: Sushila Myrick MD [Medical Doctor] - As per Instructions [facility],. [Clinic] - As per Instructions Lex Darnell MD [Medical Doctor] -
--- NOTE | 2018-08-08 12:51 | GDS ---
[f rep st] DISCHARGE SUMMARY DISCHARGE DIAGNOSES: 1. Sepsis. 2. Acute hypoxemic respiratory failure. 3. Renal insufficiency. 4. Hyperglycemia. 5. Pyuria. 6. Multiple sclerosis with acute flare. CONSULTATIONS: Neurology. PHYSICAL EXAM: GENERAL: The patient is alert. VITAL SIGNS: Afebrile, 36.4, pulse is 71, respirato ry rate is 18, blood pressure is 121/72, is saturating 92% on room air. I have seen and evaluated vinod hutton on the day of discharge. HOSPITAL COURSE: Patient is a 68-year-old male, presents with increased weakness. He was evaluated and diagnosed with: 1. Sepsis. Patient had fever as well as tachycardia and elevated white blood cell count. He was in itiated on Rocephin as well as azithromycin during this hospitalization. The etiology of his sepsis was unclear. However, his symptoms have resolved, and his vital signs have returned to baseline. 2. Acute hypoxemic respiratory failure. This has resolved. His respiratory panel PCR is negative. He is tolerating room air at the time of disposition. 3. Renal insufficiency. The patient did appear to be dehydrated at the time of admission. He recei hakan IV fluids. His renal function has improved and will be followed in the outpatient setting by his primary care physician. 4. Hyperglycemia. Hemoglobin A1c is 6.5. His hyperglycemia is likely secondary to the use of stero ids for his acute hypoxemic respiratory failure. 5. Pyuria. There has been no growth on culture. 6. MS with acute flare. The patient did receive a consultation from Neurology during this hospitali zation. MRI shows mild increase in periventricular matter. He will continue physical therapy as wel l as occupational therapy. DISPOSITION: The patient will be discharged home with home health including physical therapy, occupa tional therapy, and an RN. DISCHARGE MEDICATIONS: Please refer to EMR form. I have not provided the patient with any prescript ions at the time of disposition. I have not discontinued the patient's previously-prescribed home me dications to the best of my knowledge. He will follow up with his primary care doctor, Dr. Sushila Myrick in the next 72 hours, as well as Dr. Lex Darnell of neurology. I spent greater than 35 minutes in the care, coordination, and man agement of the patient's disposition. /[id number]/MOD
== END 2018-08-08 12:07 | disposition home health service (06) | DRG 871 ==
LOC: EDUNIT# → OBSVTOIN 16:06 → F3E 16:06
PROVIDERS: ADMIT Internal Medicine; ATTEND Internal Medicine
DX: A41.9 Sepsis, unspecified organism (principal); J96.01 Acute respiratory failure with hypoxia; G35 Multiple sclerosis; N28.9 Disorder of kidney and ureter, unspecified; R73.9 Hyperglycemia, unspecified; T38.0X5A Adverse effect of glucocorticoids and synthetic analogues, initial encounter; I11.0 Hypertensive heart disease with heart failure; I50.9 Heart failure, unspecified; E78.5 Hyperlipidemia, unspecified; Z79.01 Long term (current) use of anticoagulants; Z86.711 Personal history of pulmonary embolism; Z79.52 Long term (current) use of systemic steroids; Z91.81 History of falling
CPT/HCPCS: 97116-GP; 97162-GP; 97166-GO; 97530-GP; A9585; J0456; J0696; J2930; J7613